=== PATIENT | male | born 1995 | race Two or more races ===

== ENCOUNTER 2023-06-19 09:20 | Emergency (ER) | payer SELFPAY ==
[~2023-06-19] VITALS: Ht 170.2 cm; Wt 103.5 kg
[2023-06-19 10:13] VITALS: BP 148/96; PULSE 82; RESP 20; TEMP 98.2; O2SAT 96
[2023-06-19] MEDS ORDERED: SODIUM CHLORIDE 0.9% 1,000 ML IV ONE (10:15)
[2023-06-19 10:46] LABS: Basophils # (auto) 0.1 10 ^3/uL (0-0.2); Basophils % (auto) 0.7 % (0.0-2.0); Eosinophils # (auto) 0 10 ^3/uL (0-0.8); Eosinophils % (auto) 0.5 % (0.0-7.0); Hematocrit 43.8 % (41.0-53.0); Hemoglobin 14.6 g/dL (13.5-17.5); Lymphocytes # (auto) 2.2 10 ^3/uL (0.4-5.4); Lymphocytes % (auto) 26.4 % (10.0-50.0); Mean Corpuscular Hemoglobin 29.5 pg (28.0-32.0); Mean Corpuscular Hgb Conc. 33.4 g/dL (32.0-36.0); Mean Corpuscular Volume 88.5 fL (80.0-100.0); Monocytes # (auto) 0.9 10 ^3/uL (0-1.3); Monocytes % (auto) 10.9 % (0.0-12.0); Neutrophils # (auto) 5.1 10 ^3/uL (1.6-8.6); Neutrophils % (auto) 61.5 % (37.0-80.0); Nucleated Red Blood Cells % 0.2 %; Red Blood Cells 4.95 10^6/uL (4.5-5.90); White Blood Cell 8.3 10^3/uL (4.4-10.8)
[2023-06-19 10:48] LABS: Urine Bacteria NONE SEEN /hpf (None Seen); Urine Blood Negative /uL (Negative); Urine Clarity Clear (Clear); Urine Color Yellow (Yellow); Urine Protein, UAD TRACE (Negative); Urine Specific Gravity 1.026 (1.001-1.035); Urine Urobilinogen Normal (Negative); Urine WBC <1 /hpf (0 - 3); Urine pH 6.5 (5.0-8.0)
[2023-06-19 10:54] LABS: Amphetamine Screen, Urine Neg (NEGATIVE); Benzodiazephine Screen, Urine Neg (NEGATIVE)
[2023-06-19 10:55] LABS: Barbiturate Scree,Urine Neg (NEGATIVE); Cannabinoid Screen, Urine Neg (NEGATIVE); Cocaine Screen, Urine Neg (NEGATIVE); Opiate Scree,Urine Neg (NEGATIVE); Phencyclidine Screen, Urine Neg (NEGATIVE)
[2023-06-19 11:47] LABS: Blood Alcohol < 3.0 mg/dL (<10)
[2023-06-19 11:48] LABS: Creatine Kinase IFCC 186 U/L (46-171)
[2023-06-19 12:34] LABS: Alanine Aminotransferase 27 U/L (7-40); Albumin 5.2 g/dL (3.2-4.8); Alkaline Phosphatase 81 U/L (46-116); Anion Gap 8.5 (5-15); Aspartate Aminotransferase 17 U/L (13-40); BUN/Creatinine Ratio 17.4 (10.0-20.0); Blood Urea Nitrogen 16 mg/dL (9-23); Calcium 9.9 mg/dL (8.7-10.4); Carbon Dioxide 25.5 mmol/L (20-30); Chloride 100 mmol/L (98-107); Glucose 96 mg/dL (74-106); Potassium 4.2 mmol/L (3.5-5.1); Sodium 134 mmol/L (136-145)
[2023-06-19 12:35] LABS: Bilirubin, Total 0.7 mg/dL (0.2-1.0); Total Protein 8.4 g/dL (5.7-8.2)
[2023-06-19 12:53] VITALS: PULSE 92
== END 2023-06-19 12:52 | disposition home or self-care (01) ==
LOC: ER 09:20
DX: T67.5XXA Heat exhaustion, unspecified, initial encounter (principal); X58.XXXA Exposure to other specified factors, initial encounter; Y93.89 Activity, other specified; Y92.89 Other specified places as the place of occurrence of the external cause; Y99.8 Other external cause status
CPT/HCPCS: 36415; 80053; 80307; 80320; 81001; 82550; 82962; 84484; 85025; 93005; 96360; 99284; J7030

== ENCOUNTER 2023-10-07 08:59 | Emergency (ER) | payer MEDICAID ==
[~2023-10-07] VITALS: Ht 172.7 cm; Wt 107.1 kg
[2023-10-07 10:11] VITALS: BP 132/57; PULSE 79; RESP 18; TEMP 97.7; O2SAT 98
[2023-10-07] MEDS ORDERED: LIDOCAINE 1% HCL (LOCAL ANESTH.) INJ 20ML MDV IJ ONE (10:30)
[2023-10-07] MEDS ORDERED: DOXY-286 PO (12:11)
[2023-10-07] MEDS ORDERED: NABU-72 PO (12:11)
== END 2023-10-07 12:16 | disposition home or self-care (01) ==
LOC: ER 08:59
DX: L02.212 Cutaneous abscess of back [any part, except buttock and flank] (principal); Z79.2 Long term (current) use of antibiotics; Z79.899 Other long term (current) drug therapy
CPT/HCPCS: 10060; 87205

== ENCOUNTER 2024-06-30 10:32 | Emergency (ER) | payer SELFPAY ==
[~2024-06-30] VITALS: Ht 172.7 cm; Wt 108.1 kg
[~2024-06-30 10:32] MED LIST: DOXY-286 PO; NABU-72 PO
[2024-06-30 10:39] VITALS: BP 144/9; PULSE 94; RESP 22; O2SAT 97
[2024-06-30 11:34] LABS: COVID19 ANTIGEN SOFIA FIA NEGATIVE (NEGATIVE)
[2024-06-30] MEDS ORDERED: AZIT1POW PO (11:35)
== END 2024-06-30 14:15 | disposition home or self-care (01) ==
LOC: ER 10:32
DX: J20.9 Acute bronchitis, unspecified (principal); Z20.822 Contact with and (suspected) exposure to COVID-19
CPT/HCPCS: 36415; 71045; 87426